=== PATIENT | female | born 1940 | race Caucasian/White ===

== ENCOUNTER 2016-07-18 10:19 | Inpatient (IN) | payer OTHER, MEDICARE ==
[~2016-07-18] VITALS: Ht 160 cm; Wt 80.3 kg
[2016-07-18 10:19] VITALS: BP 100/50; PULSE 89; RESP 16; TEMP 97.8; O2SAT 99
--- NOTE | 2016-07-18 10:20 | NUR ---
Patient to ER bed 7 to gown for evaluation. Side rails up. Report given to .
--- NOTE | 2016-07-18 10:30 | NUR ---
ER at bedside examining patient.
--- NOTE | 2016-07-18 10:40 | NUR ---
PT PRESENTS TO ED [facility] FOR ALOC.
--- NOTE | 2016-07-18 11:00 | NUR ---
Pt to restroom w/moderate asist for ed staff.
[2016-07-18 11:02] LABS: BILIRUBIN,URINE NEGATIVE (NEGATIVE); CLARITY/URINE CLEAR (CLEAR); COLOR,URINE YELLOW (YELLOW); GLUCOSE,URINE TRACE (NEGATIVE); KETONES,URINE NEGATIVE (NEGATIVE); LEUKOCYTE ESTERASE ,URINE NEGATIVE (NEGATIVE); NITRITE, URINE NEGATIVE (NEGATIVE); PH,URINE 5.5 (5.0-8.0); PROTEIN URINE TRACE (NEGATIVE); UROBILINOGEN,URINE 0.2 (0.2-1.0)
[2016-07-18 11:05] LABS: BLOOD, URINE TRACE (NEGATIVE)
[2016-07-18 11:08] LABS: BASOPHILS # (AUTO) 0.5 K/uL (0.0-0.2); BASOPHILS % (AUTO) 3.5 % (0.0-2.0); HEMATOCRIT 40.4 % (36-48); HEMOGLOBIN 13.6 g/dL (12.0-16.0); LYMPHOCYTES # (AUTO) 2.4 K/uL (1.0-5.5); LYMPHOCYTES % (AUTO) 16.3 % (20.5-51.5); MEAN CORPUSCULAR HEMOGLOBIN 31 pg (27-31); MEAN CORPUSCULAR HGB CONC 34 % (32-36); MEAN CORPUSCULAR VOLUME 91 fL (79.0-98.0); MONOCYTES # (AUTO) 1.5 K/uL (0.0-1.0); MONOCYTES % (AUTO) 10.2 % (1.7-9.3); NEUTROPHILS # (AUTO) 10.1 K/uL (1.8-7.7); PLATELET COUNT (AUTO) 235 K/uL (130-430); RED BLOOD CELL COUNT(AUTO) 4.43 MIL/uL (4.2-6.2); WHITE BLOOD COUNT (AUTO) 14.5 K/uL (4.8-10.8)
[2016-07-18 11:09] LABS: BACTERIA,URINE FEW /HPF (None Seen); MUCUS,URINE 1+ /LPF (None Seen); WBC,URINE 0-3 /HPF (0-3)
[2016-07-18 11:10] LABS: ANION GAP 8 (5-15); CALCIUM 8.1 mg/dL (8.4-11.0); CHLORIDE 103 mmol/L (98-107); GLUCOSE 276 mg/dL (70-99); POTASSIUM 4.7 mmol/L (3.5-5.1); SODIUM SERUM 135 mmol/L (136-145); UREA NITROGEN, BLOOD 59 mg/dL (8-21)
[2016-07-18 11:13] LABS: PROTHROMBIN TIME 11.1 SECS (9.5-12.5)
[2016-07-18 11:13] LABS: CANNABINOID, URINE POSITIVE (NEG <=50)
[2016-07-18 11:14] LABS: BARBITURATE, URINE NEGATIVE (NEG <=200); BENZODIAZEPINE, URINE NEGATIVE (NEG <=150); COCAINE, URINE NEGATIVE (NEG <=150); METHAMPHETAMINES SCREEN,URINE NEGATIVE (NEG <=500); OPIATE, URINE NEGATIVE (NEG <=100); PHENCYCLIDINE SCREEN,URINE NEGATIVE (NEG <=25); UR TRICYCLIC ANTIDEPRESSANTS POSITIVE (NEG <=300); URINE AMPHETAMINE NEGATIVE (NEG <=500); URINE METHADONE NEGATIVE (NEG <=200); URINE OXYCODONE SCREEN POSITIVE (NEG <=100); URINE PROPOXYPHENE SCREEN NEGATIVE (NEG <=300)
--- NOTE | 2016-07-18 11:15 | NUR ---
FAMILY AT BEDSIDE FOR ADDITIONAL REPORT.PT H/O HTN,DM, AND ANXIETY.PT MORE ANXIOUS THAN NORMAL DUE TO HOUSE BURNING DOWN . PT HAS NO C/O PAIN AT THIS TIME.
[2016-07-18 11:21] LABS: ALANINE AMINOTRANSFERASE 88 U/L (12-78); ALBUMIN 2.9 g/dL (3.4-4.8); ASPARTATE AMINOTRANSFERASE 95 U/L (10-37); SALICYLATE 4 mg/dL (3-30); TOTAL BILIRUBIN 0.3 mg/dL (0.0-1.0); TOTAL PROTEIN, SERUM 7.4 g/dL (6.4-8.3)
[2016-07-18 11:24] LABS: ALCOHOL, BLOOD < 3 mg/dL (<10)
[2016-07-18 11:25] LABS: ACETAMINOPHEN < 1 ug/mL (1-30)
--- NOTE | 2016-07-18 11:30 | NUR ---
Medication reconciliation completed with information provided by family. Any prior medication reconciliation on file was reviewed and corrected.
--- NOTE | 2016-07-18 11:35 | NUR ---
Pt denies CP or SOB.
[2016-07-18] MEDS ORDERED: ESZO3TAB10 PO (11:50)
[2016-07-18] MEDS ORDERED: VENL37.55 PO (11:50)
[2016-07-18] MEDS ORDERED: TOPI100T11 PO (11:50)
[2016-07-18] MEDS ORDERED: OXYC80TA39 PO (11:50)
--- NOTE | 2016-07-18 11:50 | NUR ---
PT MEDCIATED W/ ASA. PT TOLERATED WELL.
[2016-07-18] MEDS ORDERED: LISI-209 PO (11:52)
[2016-07-18] MEDS ORDERED: SIMV10TA2 PO (11:52)
[2016-07-18] MEDS ORDERED: NORT25CA30 PO (11:53)
[2016-07-18] MEDS ORDERED: GABA-580 PO (11:55)
--- NOTE | 2016-07-18 11:59 | NUR ---
Patient will be admitted to care of . Admitted to TELEMETRY unit. Will go to room 104A. Summary report printed. Report given to ADMISSION RN.
[2016-07-18] MEDS ORDERED: ASPIRIN 325 MG TABLET PO ONE (12:00)
[2016-07-18] MEDS ORDERED: ACETAMINOPHEN 325 MG TABLET PO PRN (12:00)
[2016-07-18] MEDS ORDERED: 0.45% NACL 1,000 ML IV SCH (12:30)
[2016-07-18] MEDS ORDERED: GLUCOSE 15 GM GEL (in 37.5 GM TUBE) PO PRN ×2 (12:30)
[2016-07-18] MEDS ORDERED: DEXTROSE 50%-WATER 50 ML DISP.SYRIN IVP PRN ×2 (12:30)
--- NOTE | 2016-07-18 12:36 | NUR ---
ADMISSION NOTE Received patient from ER via gurney. Patient admitted with diagnosis of altered mental status. Patient oriented to hospital routine, call light, toileting and safety-patient verbalized understanding.
[2016-07-18 12:40] VITALS: BP 108/69; PULSE 79; RESP 17; TEMP 98.2; O2SAT 92
--- NOTE | 2016-07-18 13:00 | NUR ---
ASSISTED TO THE BATHROOM. AAOX 4. LUNGS BILATERALLY DIMINISHED AT THE BASES. STABLE.
[2016-07-18] MEDS ORDERED: NS 250 ML IV ONE (13:30)
[2016-07-18] MEDS: NACL 0.9% 1,000 ML IV SCH ×2 (13:30→22:30)
--- NOTE | 2016-07-18 14:00 | NUR ---
HAD 2 D ECHO WITH 72% EF. RESTING NO PAIN NOR DISTRESS NOTED.
[2016-07-18 16:00] VITALS: BP 116/81; PULSE 80; RESP 18; TEMP 99.4; O2SAT 90
--- NOTE | 2016-07-18 16:14 | NUR ---
PATIENT IS SLEEPING AT THIS TIME. RESTING FAMILY IS AT THE BEDSIDE.
[2016-07-18] MEDS: INSULIN ASPART 100 UNITS/ML, 10 ML VIAL (NovoLOG) SUBCUT PRN ×2 (16:59→20:56)
--- NOTE | 2016-07-18 17:08 | NUR ---
latest bs is 172mg/dl. coverage given at this time. very sleepy.
--- NOTE | 2016-07-18 17:10 | NUR ---
no chest pain nor sob noted. non productive cough noted.
--- NOTE | 2016-07-18 17:47 | NUR ---
assisted to the bathroom. made comfortable. stable. no pain.
--- NOTE | 2016-07-18 18:12 | NUR ---
patient is stable. able to tolerate the foods. no pain nor distress noted.
--- NOTE | 2016-07-18 19:00 | NUR ---
patient is asleep at this time. stable.
--- NOTE | 2016-07-18 19:24 | NUR ---
sbar report given to incoming nurse Tierra MARIE
[2016-07-18 20:00] VITALS: BP 121/52; PULSE 69; RESP 18; TEMP 98; O2SAT 95
--- NOTE | 2016-07-18 20:00 | NUR ---
Rounds Received patient lying in bed resting and watching, no s/s of any pain, no acute distress noted. IV site checked intact and patent, IV fluid infusing well. Instructed patient to call nurse when getting out of bed, call light within reach, bed alarm on.
--- NOTE | 2016-07-18 20:30 | NUR ---
Notes Assisted patient to go to bathroom and back to bed with steady gait noted. patient urinated.
[2016-07-18] MEDS ORDERED: TOPIRAMATE 100 MG TABLET(Topamax) PO SCH (21:00)
[2016-07-18] MEDS ORDERED: NORTRIPTYLINE HCL 25 MG CAPSULE PO SCH (21:00)
[2016-07-18] MEDS ORDERED: LISINOPRIL 5 MG TABLET PO SCH (21:00)
--- NOTE | 2016-07-18 23:11 | NUR ---
Notes Patient requesting for sleeping pills and pain medication MD held those medication. Explained to patient that she came in today with Dx ALOC, patient verbalizes understanding. Offered some Tylenol for pain but patient refused it. Charge nurse made aware.
--- NOTE | 2016-07-18 23:44 | NUR ---
Notes Patient c/o pain only when moving and ambulating to the bathroom, but when patient is back to bed pain is tolerable.
[2016-07-19 00:09] VITALS: BP 116/55; PULSE 70; RESP 18; TEMP 98.9; O2SAT 90
--- NOTE | 2016-07-19 01:12 | NUR ---
Notes Patient asleep, no s/s of any pain, no acute distress noted. will continue to monitor.
--- NOTE | 2016-07-19 02:24 | NUR ---
Notes Assisted patient to go to bathroom and back to bed with steady gait noted. patient urinated.
[2016-07-19 04:00] VITALS: BP 119/68; PULSE 64; RESP 18; TEMP 97.6; O2SAT 96
--- NOTE | 2016-07-19 04:39 | NUR ---
Notes Patient asleep, no s/s of any pain, no acute distress noted. sitter at the bedside.
--- NOTE | 2016-07-19 05:45 | NUR ---
Notes Assisted patient to go to bathroom and back to bed with steady gait noted. patient urinated.
[2016-07-19] MEDS: NACL 0.9% 1,000 ML IV SCH ×2 (06:07→09:30)
[2016-07-19] MEDS: INSULIN ASPART 100 UNITS/ML, 10 ML VIAL (NovoLOG) SUBCUT PRN (06:24)
--- NOTE | 2016-07-19 06:29 | NUR ---
Closing notes Patient slept most of the night, denies of any chest pain, no acute distress noted. no other changes noted on patient current condition.
[2016-07-19 07:14] LABS: BASOPHILS # (AUTO) 0.1 K/uL (0.0-0.2); BASOPHILS % (AUTO) 0.4 % (0.0-2.0); EOSINOPHILS % (AUTO) 0.1 % (0.0-4.0); HEMATOCRIT 35.8 % (36-48); LYMPHOCYTES # (AUTO) 1.9 K/uL (1.0-5.5); LYMPHOCYTES % (AUTO) 15.4 % (20.5-51.5); MEAN CORPUSCULAR HEMOGLOBIN 31 pg (27-31); MEAN CORPUSCULAR HGB CONC 34 % (32-36); MEAN CORPUSCULAR VOLUME 92 fL (79.0-98.0); MONOCYTES # (AUTO) 1.2 K/uL (0.0-1.0); MONOCYTES % (AUTO) 9.4 % (1.7-9.3); NEUTROPHILS # (AUTO) 9.4 K/uL (1.8-7.7); NEUTROPHILS % (AUTO) 74.7 % (40.0-70.0); PLATELET COUNT (AUTO) 176 K/uL (130-430); RED BLOOD CELL COUNT(AUTO) 3.89 MIL/uL (4.2-6.2); RED CELL DISTRIBUTION WIDTH 12.8 % (9.0-15.0); WHITE BLOOD COUNT (AUTO) 12.6 K/uL (4.8-10.8)
--- NOTE | 2016-07-19 07:45 | NUR ---
Initial Note Received patient resting in bed, no complaints of pain, no signs of distress, assessment complete, patient has IV on left forearm 20 gauge, with fluids running, no signs of infiltration noted, reeducated patient on use of call light and to use call rosado if assistance is needed, patient verbalized understanding,
[2016-07-19 07:53] LABS: ALANINE AMINOTRANSFERASE 69 U/L (12-78); ALBUMIN 2.3 g/dL (3.4-4.8); ANION GAP 6 (5-15); ASPARTATE AMINOTRANSFERASE 46 U/L (10-37); CALCIUM 7.6 mg/dL (8.4-11.0); CHLORIDE 107 mmol/L (98-107); CHOLESTEROL 106 mg/dL (<200); CREATININE 1.03 mg/dL (0.55-1.30); GLUCOSE 207 mg/dL (70-99); HDL CHOLESTEROL 42 mg/dL (>55); LDL CHOLESTEROL 51 mg/dL (<100); POTASSIUM 4.7 mmol/L (3.5-5.1); SODIUM SERUM 136 mmol/L (136-145); THYROID STIMULATING HORMONE 0.57 uIu/mL (0.34-4.82); TOTAL BILIRUBIN 0.3 mg/dL (0.0-1.0); TOTAL PROTEIN, SERUM 6.2 g/dL (6.4-8.3); TRIGLYCERIDES 49 mg/dL (30-150); UREA NITROGEN, BLOOD 36 mg/dL (8-21)
[2016-07-19 08:00] VITALS: BP 144/77; PULSE 77; RESP 16; TEMP 97.8; O2SAT 98
--- NOTE | 2016-07-19 08:30 | NUR ---
Rn rounds Gave patient morning medication, educated patient on potential side effects of medication, patient verbalized understanding, no other needs, call rosado left in patient's hand, bed in lowest position, two side rails up, fall precautions in place, will continue to monitor patient.
[2016-07-19] MEDS ORDERED: ENOXAPARIN SODIUM 40 MG/0.4 ML SYRINGE SUBCUT SCH (09:00)
--- NOTE | 2016-07-19 10:29 | NUR ---
RN ROUNDS Patient is resting in bed, no signs of distress, no complaints of pain, family is at bedside, no other needs at this time, will continue to monitor
[2016-07-19 11:45] VITALS: BP 144/77; PULSE 77; RESP 18; TEMP 97.8; O2SAT 98
[2016-07-19 12:48] VITALS: BP 154/53; PULSE 68; RESP 17; TEMP 98.6; O2SAT 95
--- NOTE | 2016-07-19 14:23 | NUR ---
TESTING ENGINEER faxed pt's discharge order to [facility] [employer] ([phone]).
[2016-07-19] MEDS ORDERED: SIMVASTATIN 10 MG TABLET PO SCH (21:00)
--- NOTE | 2016-07-21 12:08 | NUR ---
Discharge Follow Up Phone Call: [employer]TER called pt ([phone]) and pt's , Flavio, answered the phone. Pt's states that pt is doing well overall; there are no questions regarding discharge or medication instructions; pt's has contacted the office of pt's PCP and is waiting for a call back regarding scheduling pt's follow up appointment; pt is checking her blood sugar as directed by PCP. Pt's did not express any other needs or concerns and denied the need for additional follow up at this time. No further follow up phone calls required at this time.
== END 2016-07-19 12:25 | disposition home or self-care (01) | DRG 918 ==
LOC: SED 10:19 → STU 11:49
PROVIDERS: ADMIT Internal Medicine; ATTEND Internal Medicine
DX: T39.91XA Poisoning by unspecified nonopioid analgesic, antipyretic and antirheumatic, accidental (unintentional), initial encounter (principal); E44.1 Mild protein-calorie malnutrition; E11.9 Type 2 diabetes mellitus without complications; I10 Essential (primary) hypertension; E78.5 Hyperlipidemia, unspecified; F17.210 Nicotine dependence, cigarettes, uncomplicated; H91.90 Unspecified hearing loss, unspecified ear; G89.4 Chronic pain syndrome; E86.0 Dehydration; M19.90 Unspecified osteoarthritis, unspecified site; M47.812 Spondylosis without myelopathy or radiculopathy, cervical region; M54.10 Radiculopathy, site unspecified; N28.9 Disorder of kidney and ureter, unspecified; M54.9 Dorsalgia, unspecified; Z79.4 Long term (current) use of insulin; Z90.49 Acquired absence of other specified parts of digestive tract; Z88.0 Allergy status to penicillin; Z88.8 Allergy status to other drugs, medicaments and biological substances; Z90.710 Acquired absence of both cervix and uterus; Y92.89 Other specified places as the place of occurrence of the external cause; Z79.899 Other long term (current) drug therapy
CPT/HCPCS: 36415; 70450-TC; 71010; 80053; 80061; 80307; 81000-TC; 82962; 83880; 84443-TC; 84484; 85025; 85610-TC; 85730-TC; 93005; 93306; 99285; G0480; G0481; G0482; J1650; J1815; J7030